=== PATIENT | female | born 1965 | race Two or more races ===

== ENCOUNTER 2019-12-13 10:07 | Outpatient (CLI) | payer OTHER | END 2019-12-13 10:16 | disposition home or self-care (01) | LOC: NUCLEAR 10:07 | PROVIDERS: ATTEND Podiatrist Foot Surgery | DX: I87.2 Venous insufficiency (chronic) (peripheral) (principal) ==

== ENCOUNTER 2019-12-18 10:28 | Outpatient (CLI) | payer OTHER | END 2019-12-18 10:54 | disposition home or self-care (01) | LOC: NUCLEAR 10:28 | PROVIDERS: ATTEND Podiatrist Foot Surgery | DX: I73.9 Peripheral vascular disease, unspecified (principal); I87.2 Venous insufficiency (chronic) (peripheral) ==